=== PATIENT | female | born 1955 | race Two or more races ===

== ENCOUNTER 2024-08-21 23:26 | Inpatient (IN) | payer OTHER ==
[~2024-08-21] VITALS: Ht 157.5 cm; Wt 54.0 kg
[~2024-08-21 23:26] MED LIST: AMIO200T33 PO; DOXY100C4 PO; FURO40TA4 PO; LEVO50TA7 PO; METF-370 PO; PANT40TA2 PO; ROSU10TA16 PO; VERA120T92 PO
[2024-08-21] MEDS: IPRATROPIUM BROM 0.5 MG/2.5ML INH SOL ONE (23:40)
[2024-08-21] MEDS: ALBUTEROL SULF 2.5 MG/0.5ML(0.5%) NEB SOLN NEB ONE (23:40)
[2024-08-21] MEDS: IPRATROPIUM BROM 0.5 MG/2.5ML INH SOL NEB ONE (23:40)
[2024-08-21] MEDS: ALBUTEROL SULF 2.5 MG/0.5ML(0.5%) NEB SOLN ONE (23:41)
[2024-08-21 23:59] LABS: Hemoglobin 9.5 g/dL (12.2-16.2)
[2024-08-22] VITALS (23 sets, daily range): BP systolic 102–135; BP diastolic 49–66; PULSE 74–95; RESP 28–40; O2SAT 89–100
[2024-08-22 00:05] LABS: Hematocrit 28.7 % (36.0-46.0); Mean Corpuscular Hemoglobin 19.5 pg (28.0-32.0); Mean Corpuscular Volume 58.9 fL (80.0-100.0); Platelet Count (auto) 347 10^3/uL (140-450); Red Blood Cells 4.87 10^6/uL (4.0-5.20); White Blood Cell 27.2 10^3/uL (4.4-10.8)
[2024-08-22 00:07] LABS: Red Cell Distribution Width 20.6 % (11.8-14.3)
[2024-08-22 00:08] LABS: Alanine Aminotransferase 34 U/L (7-40); Albumin 3.1 g/dL (3.2-4.8); Alkaline Phosphatase 175 U/L (46-116); Anion Gap 9 (5-15); Aspartate Aminotransferase 84 U/L (13-40); BUN/Creatinine Ratio 23.7 (10.0-20.0); Basophils % (manual) 0 (0.0-2.0); Bilirubin, Total 0.8 mg/dL (0.2-1.0); Blast Cells 0; Blood Urea Nitrogen 27 mg/dL (9-23); Calcium 8.5 mg/dL (8.7-10.4); Carbon Dioxide 22 mmol/L (20-31); Chloride 102 mmol/L (98-107); Eosinophils % (manual) 0 (0-7); Glucose 131 mg/dL (74-106); Magnesium 1.5 mg/dL (1.6-2.6); Metamyelocytes % 0; Myelocytes % 0; Potassium 3.8 mmol/L (3.5-5.1); Promyelocytes % 0; Reactive Lymphocytes 0; Sodium 133 mmol/L (136-145); Total Protein 6.4 g/dL (5.7-8.2)
[2024-08-22] MEDS: SODIUM CHLORIDE 0.9% 1,000 ML IV ONE ×2 (00:30→05:10)
[2024-08-22 01:33] LABS: Band Neutrophils % (manual) 1
[2024-08-22 01:34] LABS: Anisocytosis Slight; Hypochromia Marked; Lymphocytes % (manual) 5 (10.0-50.0); Monocytes % (manual) 5 (0-12); Ovalocytes FEW; Platelet Estimate Adequate; Target Cell MODERATE
[2024-08-22 01:35] LABS: Large Platelets FEW
[2024-08-22 01:42] LABS: Lactic Acid w/Reflex 2.2 mmol/L (0.4-2.0)
[2024-08-22] MEDS: cefTRIAXone 1GM/50ML D5W 50 ML IV ONE (01:56)
[2024-08-22 02:01] LABS: Base Excess -0.2 mmol/L (-2.0-3.0)
[2024-08-22] MEDS: VANCOMYCIN 1GM/200ML 200 ML IV ONE (02:17)
[2024-08-22] MEDS: FUROSEMIDE 100 MG/10ML VIAL IV ONE (03:53)
[2024-08-22 04:23] LABS: Rapid Influenza A Negative (Negative); Rapid Influenza B Negative (Negative)
[2024-08-22 04:24] LABS: COVID19 ANTIGEN SOFIA FIA NEGATIVE (NEGATIVE)
[2024-08-22 06:37] LABS: INR 2.09 (0.9-1.15); Partial Thromboplastin Time 45.7 SEC (24.5-34.5)
[2024-08-22] MEDS ORDERED: ONDANSETRON HCL 4 MG/2 ML VIAL IV PRN (06:45)
[2024-08-22] MEDS ORDERED: MORPHINE SULFATE INJ 2 MG/ml SYRG IV PRN (06:45)
[2024-08-22] MEDS ORDERED: VANCOMYCIN PER PHARMACY 0 MG IV SCH (06:45)
[2024-08-22] MEDS ORDERED: NITROGLYCERIN 0.4 MG SL TAB SL PRN (06:45)
[2024-08-22] MEDS: ACCU-CHEK COMFORT CURVE STRIP VI SCH (08:33)
[2024-08-22] MEDS: InsuLIN REG 1unit/0.01ml Soln (100units/ml) SC SCH (08:34)
[2024-08-22] MEDS: MAGNESIUM SULFATE 1GM/100ML 100 ML IV SCH (08:47)
[2024-08-22] MEDS: PIPERACILLIN-TAZOB 3.375GM 100 ML IV ONE (08:47)
[2024-08-22] MEDS: PHENYLEPHRINE IV 250 ML IV SCH (09:00)
[2024-08-22 09:26] LABS: Base Excess -2.5 mmol/L (-2.0-3.0)
[2024-08-22] MEDS: methylPREDNISolone SOD SUCC 40 MG/ML VL IV SCH (09:49)
[2024-08-22] MEDS: AMIODARONE HCL 200 MG TAB PO SCH ×2 (09:50→21:43)
[2024-08-22] MEDS: VANCOMYCIN 1GM/200ML 200 ML IV SCH (10:34)
[2024-08-22] MEDS: IPRATROPIUM BROM 0.5 MG/2.5ML INH SOL NEB PRN (11:16)
[2024-08-22] MEDS: ALBUTEROL SULF 2.5 MG/0.5ML(0.5%) NEB SOLN NEB PRN (11:16)
[2024-08-22] MEDS: FUROSEMIDE 40 MG/4 ML VIAL ONE (12:00)
[2024-08-22] MEDS: FUROSEMIDE 40 MG/4 ML VIAL IV ONE (12:00)
[2024-08-22] MEDS ORDERED: AMIODARONE HCL 200 MG TAB PO ONE (12:45)
[2024-08-22 14:03] LABS: LDL Cholesterol 9 mg/dL (< 100); Triglycerides 73 mg/dL (< 150)
[2024-08-22 14:05] LABS: Cholesterol < 50.0 mg/dL (< 200); HDL Cholesterol 12 mg/dL (40-59)
[2024-08-22 14:17] LABS: Base Excess -1.3 mmol/L (-2.0-3.0)
[2024-08-22 14:26] LABS: Urine Bacteria None Seen /hpf (None Seen)
[2024-08-22] MEDS: PANTOPRAZOLE 40 MG/10 ML VIAL INJ IV ONE (15:03)
[2024-08-22 15:04] LABS: Urine Blood 1+ /uL (Negative); Urine Clarity Turbid (Clear); Urine Color Light-Yellow (Yellow); Urine Hyaline Cast FEW /lpf (0 - 2); Urine Mucus FEW (None Seen); Urine Protein, UAD 1+ (Negative); Urine Specific Gravity 1.018 (1.001-1.035); Urine Urobilinogen Normal (Negative); Urine WBC 2 /hpf (0 - 5)
[2024-08-22] MEDS: PIPERACILLIN-TAZOB 3.375GM 100 ML IV SCH (15:04)
[2024-08-22] MEDS ORDERED: WARFARIN SODIUM 1 MG TAB PO ONE (17:00)
[2024-08-22] MEDS: FUROSEMIDE 20 MG/2 ML VIAL IV SCH (18:02)
[2024-08-22] MEDS: LORazepam 2MG/ML-1ML VIAL IV PRN (21:44)
[2024-08-22] MEDS: diphenhdrAMINE HCL 50 MG/1 ML VL IV PRN (23:17)
[2024-08-23] VITALS (77 sets, daily range): BP systolic 87–146; BP diastolic 32–86; PULSE 63–91; RESP 20–40; TEMP 95.7–100.4; O2SAT 83–100
[2024-08-23] MEDS: ETOMIDATE (2MG/ML) 20ML VIAL IV ONE (00:26)
[2024-08-23] MEDS: SUCCINYLCHOLINE CHLORIDE 20 MG/ML 10ML VIAL IV ONE (00:27)
[2024-08-23] MEDS: MIDAZOLAM DRIP 50 mg/50mL 50 ML IV SCH ×2 (01:09→22:55)
[2024-08-23] MEDS: MIDAZOLAM DRIP 50 mg/50mL 50 ML IV ONE (01:09)
[2024-08-23] MEDS: ACETAMINOPHEN 325 MG TAB PO PRN (01:27)
[2024-08-23 01:44] LABS: Base Excess -3.9 mmol/L (-2.0-3.0)
[2024-08-23] MEDS: fentaNYL Drip 2500mCg/250mlNS 250 ML IV ONE (02:11)
[2024-08-23] MEDS: fentaNYL Drip 2500mCg/250mlNS 250 ML IV SCH (02:15)
[2024-08-23] MEDS: PROPOFOL 100 ML IV SCH (03:00)
[2024-08-23] MEDS: PROPOFOL 100 ML IV ONE (03:07)
[2024-08-23] MEDS: NOREPINEPHRINE 8 MG/250ML KIT 250 ML IV ONE (03:55)
[2024-08-23] MEDS: NOREPINEPHRINE 8 MG/250ML KIT 250 ML IV SCH (03:55)
[2024-08-23 05:43] LABS: Base Excess -2.4 mmol/L (-2.0-3.0)
[2024-08-23 06:01] LABS: Hemoglobin 9.2 g/dL (12.2-16.2)
[2024-08-23 06:08] LABS: Hematocrit 28.2 % (36.0-46.0); Mean Corpuscular Hemoglobin 19.4 pg (28.0-32.0); Mean Corpuscular Hgb Conc. 32.7 g/dL (32.0-36.0); Mean Corpuscular Volume 59.2 fL (80.0-100.0); Platelet Count (auto) 185 10^3/uL (140-450); Red Blood Cells 4.77 10^6/uL (4.0-5.20)
[2024-08-23 06:11] LABS: Red Cell Distribution Width 20.6 % (11.8-14.3)
[2024-08-23 06:12] LABS: White Blood Cell 37.8 10^3/uL (4.4-10.8)
[2024-08-23 06:14] LABS: Basophils % (manual) 0 (0.0-2.0); Blast Cells 0; Eosinophils % (manual) 0 (0-7); Myelocytes % 0; Promyelocytes % 0; Reactive Lymphocytes 0
[2024-08-23 06:21] LABS: Alanine Aminotransferase 36 U/L (7-40); Alkaline Phosphatase 213 U/L (46-116); Anion Gap 13 (5-15); BUN/Creatinine Ratio 28.2 (10.0-20.0); Blood Urea Nitrogen 31 mg/dL (9-23); Calcium 8.1 mg/dL (8.7-10.4); Carbon Dioxide 21 mmol/L (20-31); Chloride 103 mmol/L (98-107); Glucose 114 mg/dL (74-106); Potassium 2.6 mmol/L (3.5-5.1); Sodium 137 mmol/L (136-145)
[2024-08-23 06:22] LABS: Albumin 2.6 g/dL (3.2-4.8); Aspartate Aminotransferase 100 U/L (13-40); Total Protein 5.9 g/dL (5.7-8.2)
[2024-08-23 06:48] LABS: Anisocytosis Slight; Platelet Estimate Adequate
[2024-08-23 06:49] LABS: Hypochromia Moderate; Ovalocytes FEW; Stomatocytes Few; Target Cell MODERATE
[2024-08-23] MEDS: POTASSIUM CHL 20MEQ/100ML 100 ML IV SCH (07:55)
[2024-08-23] MEDS: PHENYLEPHRINE HCL 10 MG/ML VL ONE (08:42)
[2024-08-23 09:24] LABS: Band Neutrophils % (manual) 2; Lymphocytes % (manual) 3 (10.0-50.0); Metamyelocytes % 1; Monocytes % (manual) 4 (0-12)
[2024-08-23] MEDS: PANTOPRAZOLE 40 MG/10 ML VIAL INJ IV SCH (10:26)
[2024-08-23] MEDS: ENOXAPARIN SOD 40 MG/0.4 ML SYRINGE SC SCH (10:26)
[2024-08-23] MEDS: MEROPENEM 1GM IVPB 50 ML IV SCH (14:30)
[2024-08-23 19:10] LABS: Hematocrit 29.7 % (36.0-46.0); Hemoglobin 9.7 g/dL (12.2-16.2); Mean Corpuscular Hemoglobin 19.2 pg (28.0-32.0)
[2024-08-23 19:15] LABS: Mean Corpuscular Hgb Conc. 32.4 g/dL (32.0-36.0); Mean Corpuscular Volume 59.2 fL (80.0-100.0); Platelet Count (auto) 177 10^3/uL (140-450); Red Blood Cells 5.03 10^6/uL (4.0-5.20)
[2024-08-23 19:31] LABS: Anion Gap 10 (5-15); Carbon Dioxide 22 mmol/L (20-31); Chloride 107 mmol/L (98-107); Potassium 3.1 mmol/L (3.5-5.1); Sodium 139 mmol/L (136-145)
[2024-08-23 19:37] LABS: Blood Urea Nitrogen 33 mg/dL (9-23); Glucose 98 mg/dL (74-106)
[2024-08-23] MEDS: ALBUMIN 25% 100 ML IV SCH (20:17)
[2024-08-23 21:14] LABS: Anisocytosis Slight; Platelet Estimate Adequate
[2024-08-23 21:15] LABS: Hypochromia Marked; Target Cell MODERATE
[2024-08-23 23:30] LABS: Potassium 3.3 mmol/L (3.5-5.1)
[2024-08-23 23:42] LABS: Base Excess -4.8 mmol/L (-2.0-3.0)
[2024-08-24] VITALS (107 sets, daily range): BP systolic 84–123; BP diastolic 24–54; PULSE 80–98; RESP 20–33; TEMP 97.7–100.2; O2SAT 80–100
[2024-08-24 03:45] LABS: Basophils # (auto) 0.1 10 ^3/uL (0-0.2); Eosinophils # (auto) 0.4 10 ^3/uL (0-0.8); Hemoglobin 9.1 g/dL (12.2-16.2); Mean Corpuscular Hemoglobin 19.4 pg (28.0-32.0); Monocytes # (auto) 0.5 10 ^3/uL (0-1.3)
[2024-08-24 03:47] LABS: Basophils % (auto) 0.4 % (0.0-2.0); Eosinophils % (auto) 1.3 % (0.0-7.0); Hematocrit 27.9 % (36.0-46.0); Lymphocytes # (auto) 0.6 10 ^3/uL (0.4-5.4); Lymphocytes % (auto) 1.7 % (10.0-50.0); Mean Corpuscular Hgb Conc. 32.7 g/dL (32.0-36.0); Mean Corpuscular Volume 59.5 fL (80.0-100.0); Monocytes % (auto) 1.5 % (0.0-12.0); Neutrophils # (auto) 33.7 10 ^3/uL (1.6-8.6); Neutrophils % (auto) 95.1 % (37.0-80.0); Platelet Count (auto) 137 10^3/uL (140-450); Red Blood Cells 4.69 10^6/uL (4.0-5.20)
[2024-08-24 04:05] LABS: Alanine Aminotransferase 38 U/L (7-40); Albumin 2.7 g/dL (3.2-4.8); Alkaline Phosphatase 297 U/L (46-116); Anion Gap 11 (5-15); Aspartate Aminotransferase 84 U/L (13-40); BUN/Creatinine Ratio 30.4 (10.0-20.0); Bilirubin, Total 1.3 mg/dL (0.2-1.0); Blood Urea Nitrogen 34 mg/dL (9-23); Calcium 8.1 mg/dL (8.7-10.4); Carbon Dioxide 21 mmol/L (20-31); Chloride 108 mmol/L (98-107); Glucose 93 mg/dL (74-106); Potassium 2.9 mmol/L (3.5-5.1); Sodium 140 mmol/L (136-145); Total Protein 5.7 g/dL (5.7-8.2)
[2024-08-24 04:06] LABS: Partial Thromboplastin Time 62.1 SEC (24.5-34.5); Prothrombin Time 46.5 sec (9.3-11.8)
[2024-08-24 04:08] LABS: Red Cell Distribution Width 21.1 % (11.8-14.3)
[2024-08-24 04:11] LABS: INR 4.94 (0.9-1.15); White Blood Cell 35.4 10^3/uL (4.4-10.8)
[2024-08-24] MEDS: POTASSIUM EFFERVESENT TAB 25 MEQ GT ONE (05:53)
[2024-08-24 07:34] LABS: Base Excess -8.1 mmol/L (-2.0-3.0)
[2024-08-24] MEDS: PHENYLEPHRINE INJ 80 MG in SODIUM CHL 0.9% 242 ML IV SCH (08:00)
[2024-08-24] MEDS: NOREPINEPHRINE BITARTRATE 32 MG in SODIUM CHL 0.9% 218 ML IV SCH (08:00)
[2024-08-24] MEDS: POTASSIUM CHL 20MEQ/100ML 100 ML IV SCH (09:14)
[2024-08-24] MEDS: VANCOMYCIN 1GM/200ML 200 ML IV SCH (09:20)
[2024-08-24] MEDS: Glucerna 1.2 Cal 1Liter BOTTLE GT SCH (10:53)
[2024-08-24] MEDS: ACETYLCYSTEINE 10 %(100MG/ML) SOL 4ML NEB SCH (11:27)
[2024-08-24] MEDS: IPRATROPIUM BROM 0.5 MG/2.5ML INH SOL NEB SCH (11:27)
[2024-08-24] MEDS: ALBUTEROL SULF 2.5 MG/0.5ML(0.5%) NEB SOLN NEB SCH (11:27)
[2024-08-24 13:40] LABS: Base Excess -7.1 mmol/L (-2.0-3.0)
[2024-08-24] MEDS: MICAFUNGIN SODIUM 100 MG in SODIUM CHL 0.9% 100 ML IV ONE (15:56)
[2024-08-24 16:53] LABS: Urine Bacteria FEW /hpf (None Seen); Urine Blood 2+ /uL (Negative); Urine Clarity Ex.Turbid (Clear); Urine Color Light-Orange (Yellow); Urine Hyaline Cast FEW /lpf (0 - 2); Urine Mucus FEW (None Seen); Urine Protein, UAD 2+ (Negative); Urine Urobilinogen Normal (Negative); Urine WBC 19 /hpf (0 - 5)
[2024-08-24 17:10] LABS: Base Excess -9.6 mmol/L (-2.0-3.0)
[2024-08-24] MEDS: ROCURONIUM 10MG/ML 10ML VIAL IV ONE (18:09)
[2024-08-24] MEDS ORDERED: ROCURONIUM 10MG/ML 10ML VIAL IV PRN (18:30)
[2024-08-24] MEDS: VASOPRESSIN 20 UNITS in SODIUM CHL 0.9% 99 ML IV SCH (19:42)
[2024-08-24 20:39] LABS: Base Excess -11.9 mmol/L (-2.0-3.0)
[2024-08-24 22:16] LABS: Base Excess -12.2 mmol/L (-2.0-3.0)
[2024-08-24] MEDS: DEXTROSE (50%) 50ML SYRG IV PRN (22:27)
[2024-08-24] MEDS: MUPIROCIN 2% OINT 15gm or 22gm FOR MRSA NARES EACHNOSTRI SCH (22:28)
[2024-08-24 23:11] LABS: Alanine Aminotransferase 35 U/L (7-40); Alkaline Phosphatase 422 U/L (46-116); Anion Gap 11 (5-15); BUN/Creatinine Ratio 22.2 (10.0-20.0); Blood Urea Nitrogen 35 mg/dL (9-23); Calcium 7.7 mg/dL (8.7-10.4); Carbon Dioxide 18 mmol/L (20-31); Chloride 110 mmol/L (98-107); Glucose 163 mg/dL (74-106); Magnesium 1.8 mg/dL (1.6-2.6); Potassium 4.1 mmol/L (3.5-5.1); Sodium 139 mmol/L (136-145)
[2024-08-24 23:12] LABS: Albumin 2.6 g/dL (3.2-4.8); Bilirubin, Total 1.6 mg/dL (0.2-1.0)
[2024-08-24 23:24] LABS: Aspartate Aminotransferase 108 U/L (13-40)
[2024-08-25] VITALS (103 sets, daily range): BP systolic 96–142; BP diastolic 18–57; PULSE 76–99; RESP 26; TEMP 97.3–99.5; O2SAT 86–100
[2024-08-25] MEDS: HYDROCORTISONE SOD SUCC 100 MG/2ML INJ VIAL IV SCH (01:07)
[2024-08-25] MEDS: MAGNESIUM SULFATE 1GM/100ML 100 ML IV SCH (03:22)
[2024-08-25 04:19] LABS: Chloride 111 mmol/L (98-107); Potassium 4.1 mmol/L (3.5-5.1); Sodium 140 mmol/L (136-145)
[2024-08-25 04:20] LABS: Anion Gap 12 (5-15); Calcium 7.7 mg/dL (8.7-10.4); Carbon Dioxide 17 mmol/L (20-31)
[2024-08-25 04:25] LABS: BUN/Creatinine Ratio 21.6 (10.0-20.0); Blood Urea Nitrogen 37 mg/dL (9-23); Glucose 83 mg/dL (74-106)
[2024-08-25 04:27] LABS: Albumin 2.7 g/dL (3.2-4.8)
[2024-08-25 04:32] LABS: Hemoglobin 9.2 g/dL (12.2-16.2); Mean Corpuscular Hemoglobin 20.1 pg (28.0-32.0)
[2024-08-25 04:34] LABS: Hematocrit 28.8 % (36.0-46.0); Mean Corpuscular Hgb Conc. 31.9 g/dL (32.0-36.0); Mean Corpuscular Volume 63.1 fL (80.0-100.0); Platelet Count (auto) 122 10^3/uL (140-450); Red Blood Cells 4.56 10^6/uL (4.0-5.20)
[2024-08-25] MEDS: EPINEPHrine HCL 250 ML IV SCH (04:47)
[2024-08-25 05:07] LABS: Red Cell Distribution Width 22.1 % (11.8-14.3)
[2024-08-25 05:09] LABS: Band Neutrophils % (manual) 0; Basophils % (manual) 0 (0.0-2.0); Blast Cells 0; Metamyelocytes % 0; Myelocytes % 0; Promyelocytes % 0; Reactive Lymphocytes 0; White Blood Cell 32.8 10^3/uL (4.4-10.8)
[2024-08-25 06:43] LABS: Eosinophils % (manual) 3 (0-7); Lymphocytes % (manual) 3 (10.0-50.0); Monocytes % (manual) 1 (0-12); Smudge Cells 1 /100 WBC
[2024-08-25 06:44] LABS: Anisocytosis Slight; Hypochromia Moderate; Platelet Estimate Decreased
[2024-08-25 07:32] LABS: Base Excess -13.3 mmol/L (-2.0-3.0)
[2024-08-25] MEDS: ALBUMIN 25% 100 ML IV SCH (09:03)
[2024-08-25] MEDS: SODIUM BICARB 8.4% 50Meq/50ml SYR Vial IV ONE (10:15)
[2024-08-25] MEDS: MICAFUNGIN SODIUM 100 MG in SODIUM CHL 0.9% 100 ML IV SCH (10:18)
[2024-08-25 13:23] LABS: Base Excess -9.5 mmol/L (-2.0-3.0)
[2024-08-25 14:29] LABS: Basophils # (auto) 0.2 10 ^3/uL (0-0.2); Basophils % (auto) 0.6 % (0.0-2.0); Hemoglobin 8.7 g/dL (12.2-16.2); Mean Corpuscular Hemoglobin 20.2 pg (28.0-32.0); Nucleated Red Blood Cells % 0.1 %
[2024-08-25 14:31] LABS: Eosinophils # (auto) 0.4 10 ^3/uL (0-0.8); Eosinophils % (auto) 1.1 % (0.0-7.0); Hematocrit 26.3 % (36.0-46.0); Lymphocytes # (auto) 0.6 10 ^3/uL (0.4-5.4); Lymphocytes % (auto) 1.8 % (10.0-50.0); Mean Corpuscular Volume 61.2 fL (80.0-100.0); Monocytes # (auto) 0.5 10 ^3/uL (0-1.3); Monocytes % (auto) 1.7 % (0.0-12.0); Neutrophils # (auto) 30.8 10 ^3/uL (1.6-8.6); Neutrophils % (auto) 94.8 % (37.0-80.0); Platelet Count (auto) 135 10^3/uL (140-450); Red Blood Cells 4.29 10^6/uL (4.0-5.20)
[2024-08-25 14:37] LABS: Chloride 109 mmol/L (98-107); Potassium 4.9 mmol/L (3.5-5.1); Sodium 138 mmol/L (136-145)
[2024-08-25 14:38] LABS: Anion Gap 11 (5-15); Calcium 7.8 mg/dL (8.7-10.4); Carbon Dioxide 18 mmol/L (20-31)
[2024-08-25 14:40] LABS: White Blood Cell 32.4 10^3/uL (4.4-10.8)
[2024-08-25 14:43] LABS: BUN/Creatinine Ratio 22.8 (10.0-20.0); Blood Urea Nitrogen 42 mg/dL (9-23); Glucose 138 mg/dL (74-106)
[2024-08-25 17:19] LABS: Prothrombin Time 53.4 sec (9.3-11.8)
[2024-08-25 17:23] LABS: INR 5.73 (0.9-1.15)
[2024-08-25] MEDS: PHYTONADIONE (VIT K)10 MG/ML 1ML VIAL SUBCUT ONE (20:00)
[2024-08-26] VITALS (82 sets, daily range): BP systolic 82–136; BP diastolic 18–87; PULSE 42–84; RESP 21–28; TEMP 97.9–99; O2SAT 84–100
[2024-08-26 06:05] LABS: Hemoglobin 7.9 g/dL (12.2-16.2); Platelet Count (auto) 113 10^3/uL (140-450)
[2024-08-26 06:07] LABS: Hematocrit 24.1 % (36.0-46.0); Mean Corpuscular Hemoglobin 20.3 pg (28.0-32.0); Mean Corpuscular Hgb Conc. 32.8 g/dL (32.0-36.0); Red Blood Cells 3.88 10^6/uL (4.0-5.20)
[2024-08-26 06:11] LABS: Red Cell Distribution Width 21.2 % (11.8-14.3)
[2024-08-26 06:13] LABS: Basophils % (manual) 0 (0.0-2.0); Blast Cells 0; Eosinophils % (manual) 0 (0-7); Metamyelocytes % 0; Myelocytes % 0; Promyelocytes % 0; Reactive Lymphocytes 0
[2024-08-26 06:21] LABS: Prothrombin Time 68.4 sec (9.3-11.8)
[2024-08-26 06:25] LABS: Alanine Aminotransferase 43 U/L (7-40); Albumin 3.5 g/dL (3.2-4.8); Alkaline Phosphatase 478 U/L (46-116); Anion Gap 15 (5-15); BUN/Creatinine Ratio 21.7 (10.0-20.0); Bilirubin, Total 2.7 mg/dL (0.2-1.0); Blood Urea Nitrogen 46 mg/dL (9-23); Carbon Dioxide 15 mmol/L (20-31); Chloride 109 mmol/L (98-107); Glucose 133 mg/dL (74-106); Potassium 4.8 mmol/L (3.5-5.1); Sodium 139 mmol/L (136-145)
[2024-08-26 06:28] LABS: INR 7.49 (0.9-1.15)
[2024-08-26 06:32] LABS: Aspartate Aminotransferase 159 U/L (13-40)
[2024-08-26 09:13] LABS: Band Neutrophils % (manual) 17; Hypochromia Moderate; Lymphocytes % (manual) 2 (10.0-50.0); Monocytes % (manual) 6 (0-12); Platelet Estimate Decreased
[2024-08-26 09:14] LABS: Anisocytosis Slight
[2024-08-26 10:29] LABS: Base Excess -19.4 mmol/L (-2.0-3.0)
[2024-08-26] MEDS: SODIUM BICARB 8.4% 50Meq/50ml SYR INJ ONE (12:34)
[2024-08-26] MEDS: SODIUM BICARB 8.4% 50Meq/50ml SYR Vial IV ONE (12:36)
[2024-08-26] MEDS: MEROPENEM 500MG IVPB 50 ML IV SCH (15:09)
[2024-08-26] MEDS ORDERED: POTA1TAB4 PO (17:07)
== END 2024-08-26 18:53 | DRG 871 ==
LOC: EDBD 23:26 → ER 23:26 → TELE 08-22 06:50 → ICU WEST 08-22 06:50
PROVIDERS: ADMIT Internal Medicine; ATTEND Emergency Medicine
PROC: 5A0935A Assistance with Respiratory Ventilation, Less than 24 Consecutive Hours, High Flow/Velocity Cannula (ICD-10-PCS; 2024-08-22)
PROC: 5A09357 Assistance with Respiratory Ventilation, Less than 24 Consecutive Hours, Continuous Positive Airway Pressure (ICD-10-PCS; 2024-08-22)
PROC: 02HV33Z Insertion of Infusion Device into Superior Vena Cava, Percutaneous Approach (ICD-10-PCS; principal; 2024-08-23)
PROC: 0BH18EZ Insertion of Endotracheal Airway into Trachea, Via Natural or Artificial Opening Endoscopic (ICD-10-PCS; 2024-08-23)
PROC: 5A1945Z Respiratory Ventilation, 24-96 Consecutive Hours (ICD-10-PCS; 2024-08-23)
PROC: 0DH67UZ Insertion of Feeding Device into Stomach, Via Natural or Artificial Opening (ICD-10-PCS; 2024-08-23)
PROC: 30233K1 Transfusion of Nonautologous Frozen Plasma into Peripheral Vein, Percutaneous Approach (ICD-10-PCS; 2024-08-25)
PROC: 0B9D8ZX Drainage of Right Middle Lung Lobe, Via Natural or Artificial Opening Endoscopic, Diagnostic (ICD-10-PCS; 2024-08-26)
DX: A41.9 Sepsis, unspecified organism (principal); G93.41 Metabolic encephalopathy; I21.A1 Myocardial infarction type 2; R65.21 Severe sepsis with septic shock; J80 Acute respiratory distress syndrome; N17.0 Acute kidney failure with tubular necrosis; J15.69 Pneumonia due to other Gram-negative bacteria; J15.9 Unspecified bacterial pneumonia; I50.33 Acute on chronic diastolic (congestive) heart failure; D68.9 Coagulation defect, unspecified; E87.20 Acidosis, unspecified; R57.0 Cardiogenic shock; I11.0 Hypertensive heart disease with heart failure; E11.9 Type 2 diabetes mellitus without complications; E03.9 Hypothyroidism, unspecified; E78.5 Hyperlipidemia, unspecified; I48.0 Paroxysmal atrial fibrillation; Z20.822 Contact with and (suspected) exposure to COVID-19; I27.20 Pulmonary hypertension, unspecified; H57.04 Mydriasis; R74.01 Elevation of levels of liver transaminase levels; Z90.49 Acquired absence of other specified parts of digestive tract; Z79.01 Long term (current) use of anticoagulants; Z86.73 Personal history of transient ischemic attack (TIA), and cerebral infarction without residual deficits; Z79.84 Long term (current) use of oral hypoglycemic drugs; Z74.01 Bed confinement status; Z66 Do not resuscitate
CPT/HCPCS: 31624; 36415; 36600; 71045; 74018; 80048; 80053; 80061; 80202; 81001; 82040; 82805; 82962; 83036; 83605; 83735; 83880; 84100; 84132; 84443; 84484; 85007; 85025; 85027; 85379; 85610; 85730; 86850; 86900; 86901; 87040; 87070; 87081; 87086; 87088; 87186; 87205; 87426; 87804; 93005; 93306; 93970; 94002; 94003; 94640; 94660; 99291; G0378; J0171; J0330; J2185; J2248; J2470; J2543; J2704; J3430; J3480; P9047